=== PATIENT | female | born 1980 | race Caucasian/White ===

== ENCOUNTER 2022-08-22 01:13 | Emergency (ER) | payer OTHER ==
[~2022-08-22] VITALS: Ht 175.3 cm; Wt 113.4 kg
[2022-08-22] MEDS ORDERED: MELOXICAM15 MG PO (01:23)
[2022-08-22] MEDS ORDERED: GABAPENTIN800 MG PO (01:23)
[2022-08-22] MEDS ORDERED: PHENTERMINE H37.5 M1 PO (01:23)
[2022-08-22] MEDS ORDERED: CAPLYTA42 MG PO (01:24)
[2022-08-22] MEDS ORDERED: CYCLOBENZAPRINE10 MG PO (01:24)
[2022-08-22] MEDS ORDERED: CLONIDINE HCL0.3 MG PO (01:24)
[2022-08-22] MEDS ORDERED: BUPRENORPHINE-1 EACH SL (05:54)
== END 2022-08-22 03:08 | disposition home or self-care (01) ==
LOC: ED 01:13
DX: I83.891 Varicose veins of right lower extremity with other complications (principal); Z79.899 Other long term (current) drug therapy
CPT/HCPCS: 36415; 80053; 85025; 85610; 99283

== ENCOUNTER 2022-08-22 05:39 | Emergency (ER) | payer OTHER ==
[~2022-08-22] VITALS: Ht 175.3 cm; Wt 113.4 kg
[~2022-08-22 05:39] MED LIST: CAPLYTA42 MG PO; CLONIDINE HCL0.3 MG PO; CYCLOBENZAPRINE10 MG PO; GABAPENTIN800 MG PO; MELOXICAM15 MG PO; PHENTERMINE H37.5 M1 PO
--- OUTSIDE RECORDS SUMMARY | 2022-08-22 05:42 | XMS ---
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 Jose has no Care Guidelines for this patient. [facility] MO[facility]: Visits indicate total known visits. ED/C VISIT TRACKING (12 MO.) [facility] COMPLAINT: - BLEEDING EXTREMITY 08/22/2022 01:14 [facility] TYPE: Emergency COMPLAINT: - BLEEDING EXTREMITY INPATIENT VISIT TRACKING (12 MO.) No inpatient visits to display in this time frame [id number]
[2022-08-22] MEDS ORDERED: BUPRENORPHINE-1 EACH SL (05:54)
== END 2022-08-22 06:35 | disposition home or self-care (01) ==
LOC: ED 05:39
DX: I83.891 Varicose veins of right lower extremity with other complications (principal)
CPT/HCPCS: 12001; 99283-25

== ENCOUNTER 2023-03-30 17:30 | Emergency (ER) | payer OTHER ==
[~2023-03-30] VITALS: Ht 175.3 cm; Wt 113.4 kg
--- OUTSIDE RECORDS SUMMARY | ~2023-03-30 | XMS | Continuity of Care Document ---
Demographics + + + | Address | [address] | | | [place] [address] | + + + | Preferred Language | Unknown | + + + | Marital Status | | + + + | Worship Affiliation | Unknown | + + + | Race | White | + + + | Ethnic Group | Not or | + + + Author + + + | Author | [facility] | + + + | Organization | [facility] | + + + | Address | [address] | | | [place] [address] | + + + | Phone | | + + + Care Team Providers + + + + | Care [facility] Lifeguard Specialist Name | Role | Phone | + + + + Unavailable | Unavailable | + + + + Unavailable | Unavailable | + + + + Unavailable | Unavailable | + + + + Allergies No information. Encounters No information. Functional Status No information. Immunizations No information. Medications + + + + | date | description | facility | + + + + | 2022-08-22 00:00 | Buprenorphine HCl/Naloxone | [facility] | | | HCl | | + + + + | 2022-08-22 00:00 | MELOXICAM | [facility] | + + + + | 2022-08-22 00:00 | MELOXICAM | [facility] | + + + + | 2022-08-22 00:00 | Lumateperone Tosylate | [facility] | + + + + | 2022-08-22 00:00 | Lumateperone Tosylate | [facility] | + + + + | 2022-08-22 00:00 | GABAPENTIN | [facility] | + + + + | 2022-08-22 00:00 | GABAPENTIN | [facility] | + + + + | 2022-08-22 00:00 | PHENTERMINE HCL | [facility] | + + + + | 2022-08-22 00:00 | PHENTERMINE HCL | [facility] | + + + + | 2022-08-22 00:00 | CYCLOBENZAPRINE HCL | [facility] | + + + + | 2022-08-22 00:00 | CYCLOBENZAPRINE HCL | [facility] | + + + + | 2022-08-22 00:00 | CLONIDINE HCL | [facility] | + + + + | 2022-08-22 00:00 | CLONIDINE HCL | [facility] | + + + + Problems + + + + | date | description | facility | + + + + | 2022-08-22 00:00 | Hemorrhage of varicose | [facility] | | | veins of right lower | | | | extremity | | + + + + | 2022-08-22 00:00 | Hemorrhage of varicose | [facility] | | | veins of right lower | | | | extremity | | + + + + | 2022-08-22 00:00 | Hemorrhage of varicose | [facility] | | | veins of left lower | | | | extremity | | + + + + Procedures No information. Results/Labs +--------+--------+ +---------+--------+---------+ | test | date | facility | value | unit | notes | +--------+--------+ +---------+--------+---------+ + + | Result panel 1 | + + + + + +-------+ + + | | 2022-08-22 | [facility] | 7.7 | (missing) | (missing) | | (unavailable | 01:25:08 [facility] | | | + + + +-------+ + + + + | Result panel 2 | + + + + + +--------+ + + | | 2022-08-22 | [facility] | 59.9 | (missing) | (missing) | | (unavailable | 01::08 [facility] | | | | + + + +--------+ + + + + | Result panel 3 | + + + + + +--------+ + + | | 2022-08-22 | [facility] | 31.9 | (missing) | (missing) | | (unavailable | 01::08 [facility] | | | | + + + +--------+ + + + + | Result panel 4 | + + + + + +-------+ + + | | 2022-08-22 | [facility] | 6.3 | (missing) | (missing) | | (unavailable | :25:08 [facility] | | | | + + + +-------+ + + + + | Result panel 5 | + + + + + +-------+ + + | | 2022-08-22 | [facility] | 1.2 | (missing) | (missing) | | (unavailable | ::08 | [facility] | | | | + + + +-------+ + + + + | Result panel 6 | + + + + + +-------+ + + | | 2022-08-22 | [facility] | 0.7 | (missing) | (missing) | | (unavailable | 01:25:08 [facility] | | | + + + +-------+ + + + + | Result panel 7 | + + + + + +--------+ + + | | 2022-08-22 | [facility] | 13.3 | (missing) | (missing) | | (unavailable | ::08 | [facility] | | | + + + +--------+ + + + + | Result panel 8 | + + + + + +--------+ + + | | 2022-08-22 | [facility] | 1.06 | (missing) | (missing) | | (unavailable | ::08 | [facility] | | | + + + +--------+ + + + + | Result panel 9 | + + + + + +------+---------+ + | | 2022-08-22 | [facility] | 99 | mg/dL | (missing) | | (unavailable | ::08 | [facility] | | | | + + + +------+---------+ + + + | Result panel 10 | + + + + + +------+---------+ + | | 2022-08-22 | [facility] | 10 | mg/dL | (missing) | | (unavailable | ::08 | [facility] | | | | + + + +------+---------+ + + + | Result panel 11 | + + + + + +--------+---------+ + | | 2022-08-22 | [facility] | 0.77 | mg/dL | (missing) | | (unavailable | ::08 | [facility] | | | + + + +--------+---------+ + + + | Result panel 12 | + + + + + +--------+ + + | | 2022-08-22 | [facility] | 3.83 | (missing) | (missing) | | (unavailable | :25:08 [facility] | | | | + + + +--------+ + + + + | Result panel 13 | + + + + + +------+ + + | | 2022-08-22 | [facility] | 99 | (missing) | (missing) | | (unavailable | ::08 | [facility] | | | + + + +------+ + + + + | Result panel 14 | + + + + + +---------+ + + | | 2022-08-22 | [facility] | 12.98 | (missing) | (missing) | | (unavailable | 01:25:08 [facility] | | | | + + + +---------+ + + + + | Result panel 15 | + + + + + +-------+ + + | | 2022-08-22 | [facility] | 142 | (missing) | (missing) | | (unavailable | 01:25:08 [facility] | | | | + + + +-------+ + + + + | Result panel 16 | + + + + + +-------+ + + | | 2022-08-22 | [facility] | 3.9 | (missing) | (missing) | | (unavailable | 01:25:08 [facility] | | | + + + +-------+ + + + + | Result panel 17 | + + + + + +-------+ + + | | 2022-08-22 | [facility] | 104 | (missing) | (missing) | | (unavailable | 01:25:08 [facility] | | | + + + +-------+ + + + + | Result panel 18 | + + + + + +------+ + + | | 2022-08-22 | [facility] | 29 | (missing) | (missing) | | (unavailable | 01:25:08 [facility] | | | | + + + +------+ + + + + | Result panel 19 | + + + + + +--------+ + + | | 2022-08-22 | [facility] | 12.9 | (missing) | (missing) | | (unavailable | 01:25:08 [facility] | | | + + + +--------+ + + + + | Result panel 20 | + + + + + +-------+---------+ + | | 2022-08-22 | [facility] | 8.5 | mg/dL | (missing) | | (unavailable | :25:08 [facility] | | | + + + +-------+---------+ + + + | Result panel 21 | + + + + + +-------+ + + | | 2022-08-22 | [facility] | 7.0 | (missing) | (missing) | | (unavailable | :25:08 [facility] | | | | + + + +-------+ + + + + | Result panel 22 | + + + + + +-------+ + + | | 2022-08-22 | [facility] | 3.4 | (missing) | (missing) | | (unavailable | 01:25:08 [facility] | | | + + + +-------+ + + + + | Result panel 23 | + + + + + +--------+ + + | | 2022-08-22 | [facility] | 10.7 | (missing) | (missing) | | (unavailable | 01:25:08 [facility] | | | + + + +--------+ + + + + | Result panel 24 | + + + + + +-------+ + + | | 2022-08-22 | [facility] | 3.6 | (missing) | (missing) | | (unavailable | 01:25:08 [facility] | | | + + + +-------+ + + + + | Result panel 25 | + + + + + +--------+ + + | | 2022-08-22 | [facility] | 0.94 | (missing) | (missing) | | (unavailable | 01:25:08 [facility] | | | + + + +--------+ + + + + | Result panel 26 | + + + + + +-------+ + + | | 2022-08-22 | [facility] | 0.6 | (missing) | (missing) | | (unavailable | 01:25:08 [facility] | | | + + + +-------+ + + + + | Result panel 27 | + + + + + +------+ + + | | 2022-08-22 | [facility] | 21 | (missing) | (missing) | | (unavailable | 01:25:08 [facility] | | | + + + +------+ + + + + | Result panel 28 | + + + + + +------+ + + | | 2022-08-22 | [facility] | 26 | (missing) | (missing) | | (unavailable | ::08 | [facility] | | | + + + +------+ + + + + | Result panel 29 | + + + + + +------+ + + | | 2022-08-22 | [facility] | 65 | (missing) | (missing) | | (unavailable | ::08 | [facility] | | | + + + +------+ + + + + | Result panel 30 | + + + + + +-------+ + + | | 2022-08-22 | [facility] | 7.7 | (missing) | (missing) | | (unavailable | ::08 | [facility] | | | + + + +-------+ + + + + | Result panel 31 | + + + + + +--------+ + + | | 2022-08-22 | [facility] | 3.83 | (missing) | (missing) | | (unavailable | :25:08 [facility] | | | + + + +--------+ + + + + | Result panel 32 | + + + + + +--------+ + + | | 2022-08-22 | [facility] | 10.7 | (missing) | (missing) | | (unavailable | :08 | [facility] | | | + + + +--------+ + + + + | Result panel 33 | + + + + + +--------+ + + | | 2022-08-22 | [facility] | 31.7 | (missing) | (missing) | | (unavailable | :08 | [facility] | | | + + + +--------+ + + + + | Result panel 34 | + + + + + +--------+ + + | | 2022-08-22 | [facility] | 31.7 | (missing) | (missing) | | (unavailable | :25:08 [facility] | | | + + + +--------+ + + + + | Result panel 35 | + + + + + +--------+ + + | | 2022-08-22 | [facility] | 82.6 | (missing) | (missing) | | (unavailable | :25:08 [facility] | | | + + + +--------+ + + + + | Result panel 36 | + + + + + +--------+ + + | | 2022-08-22 | [facility] | 28.0 | (missing) | (missing) | | (unavailable | :25:08 [facility] | | | + + + +--------+ + + + + | Result panel 37 | + + + + + +--------+ + + | | 2022-08-22 | [facility] | 33.9 | (missing) | (missing) | | (unavailable | 01:25:08 [facility] | | | + + + +--------+ + + + + | Result panel 38 | + + + + + +--------+ + + | | 2022-08-22 | [facility] | 13.8 | (missing) | (missing) | | (unavailable | 01:25:08 [facility] | | | + + + +--------+ + + + + | Result panel 39 | + + + + + +-------+ + + | | 2022-08-22 | [facility] | 226 | (missing) | (missing) | | (unavailable | 01:25:08 [facility] | | | + + + +-------+ + + + + | Result panel 40 | + + + + + +--------+ + + | | 2022-08-22 | [facility] | 59.9 | (missing) | (missing) | | (unavailable | 01:25:08 [facility] | | | + + + +--------+ + + + + | Result panel 41 | + + + + + +--------+ + + | | 2022-08-22 | [facility] | 31.9 | (missing) | (missing) | | (unavailable | 01:25:08 [facility] | | | + + + +--------+ + + + + | Result panel 42 | + + + + + +-------+ + + | | 2022-08-22 | [facility] | 6.3 | (missing) | (missing) | | (unavailable | ::08 | [facility] | | | + + + +-------+ + + + + | Result panel 43 | + + + + + +-------+ + + | | 2022-08-22 | [facility] | 1.2 | (missing) | (missing) | | (unavailable | 01:25:08 [facility] | | | + + + +-------+ + + + + | Result panel 44 | + + + + + +-------+ + + | | 2022-08-22 | [facility] | 0.7 | (missing) | (missing) | | (unavailable | 01:25:08 [facility] | | | + + + +-------+ + + + + | Result panel 45 | + + + + + +--------+ + + | | 2022-08-22 | [facility] | 82.6 | (missing) | (missing) | | (unavailable | 01:25:08 [facility] | | | + + + +--------+ + + + + | Result panel 46 | + + + + + +--------+ + + | | 2022-08-22 | [facility] | 13.3 | (missing) | (missing) | | (unavailable | 01:25:08 [facility] | | | + + + +--------+ + + + + | Result panel 47 | + + + + + +--------+ + + | | 2022-08-22 | [facility] | 1.06 | (missing) | (missing) | | (unavailable | :25:08 [facility] | | | + + + +--------+ + + + + | Result panel 48 | + + + + + +------+---------+ + | | 2022-08-22 | [facility] | 99 | mg/dL | (missing) | | (unavailable | 01:25:08 [facility] | | | + + + +------+---------+ + + + | Result panel 49 | + + + + + +------+---------+ + | | 2022-08-22 | [facility] | 10 | mg/dL | (missing) | | (unavailable | 01:25:08 | [facility] | | | + + + +------+---------+ + + + | Result panel 50 | + + + + + +--------+---------+ + | | 2022-08-22 | [facility] | 0.77 | mg/dL | (missing) | | (unavailable | 01:25:08 [facility] | | | + + + +--------+---------+ + + + | Result panel 51 | + + + + + +------+ + + | | 2022-08-22 | [facility] | 99 | (missing) | (missing) | | (unavailable | 01:25:08 [facility] | | | + + + +------+ + + + + | Result panel 52 | + + + + + +---------+ + + | | 2022-08-22 | [facility] | 12.98 | (missing) | (missing) | | (unavailable | 01:25:08 [facility] | | | | + + + +---------+ + + + + | Result panel 53 | + + + + + +-------+ + + | | 2022-08-22 | [facility] | 142 | (missing) | (missing) | | (unavailable | 01:25:08 [facility] | | | + + + +-------+ + + + + | Result panel 54 | + + + + + +-------+ + + | | 2022-08-22 | [facility] | 3.9 | (missing) | (missing) | | (unavailable | 01:25:08 [facility] | | | + + + +-------+ + + + + | Result panel 55 | + + + + + +-------+ + + | | 2022-08-22 | [facility] | 104 | (missing) | (missing) | | (unavailable | 01:25:08 | [facility] | | | + + + +-------+ + + + + | Result panel 56 | + + + + + +--------+ + + | | 2022-08-22 | [facility] | 28.0 | (missing) | (missing) | | (unavailable | ::08 | [facility] | | | + + + +--------+ + + + + | Result panel 57 | + + + + + +------+ + + | | 2022-08-22 | [facility] | 29 | (missing) | (missing) | | (unavailable | ::08 | [facility] | | | + + + +------+ + + + + | Result panel 58 | + + + + + +--------+ + + | | 2022-08-22 | [facility] | 12.9 | (missing) | (missing) | | (unavailable | 01:25:08 [facility] | | | + + + +--------+ + + + + | Result panel 59 | + + + + + +-------+---------+ + | | 2022-08-22 | [facility] | 8.5 | mg/dL | (missing) | | (unavailable | 08 | [facility] | | | | + + + +-------+---------+ + + + | Result panel 60 | + + + + + +-------+ + + | | 2022-08-22 | [facility] | 7.0 | (missing) | (missing) | | (unavailable | :08 | [facility] | | | + + + +-------+ + + + + | Result panel 61 | + + + + + +-------+ + + | | 2022-08-22 | [facility] | 3.4 | (missing) | (missing) | | (unavailable | ::08 | [facility] | | | + + + +-------+ + + + + | Result panel 62 | + + + + + +-------+ + + | | 2022-08-22 | [facility] | 3.6 | (missing) | (missing) | | (unavailable | :08 | [facility] | | | + + + +-------+ + + + + | Result panel 63 | + + + + + +--------+ + + | | 2022-08-22 | [facility] | 0.94 | (missing) | (missing) | | (unavailable | :25:08 [facility] | | | + + + +--------+ + + + + | Result panel 64 | + + + + + +-------+ + + | | 2022-08-22 | [facility] | 0.6 | (missing) | (missing) | | (unavailable | :25:08 [facility] | | | + + + +-------+ + + + + | Result panel 65 | + + + + + +------+ + + | | 2022-08-22 | [facility] | 21 | (missing) | (missing) | | (unavailable | 01:25:08 | [facility] | | | | + + + +------+ + + + + | Result panel 66 | + + + + + +------+ + + | | 2022-08-22 | [facility] | 26 | (missing) | (missing) | | (unavailable | 01:25:08 [facility] | | | | + + + +------+ + + + + | Result panel 67 | + + + + + +--------+ + + | | 2022-08-22 | [facility] | 33.9 | (missing) | (missing) | | (unavailable | 01:25:08 [facility] | | | + + + +--------+ + + + + | Result panel 68 | + + + + + +------+ + + | | 2022-08-22 | [facility] | 65 | (missing) | (missing) | | (unavailable | 01:25:08 | [facility] | | | | + + + +------+ + + + + | Result panel 69 | + + + + + +--------+ + + | | 2022-08-22 | [facility] | 13.8 | (missing) | (missing) | | (unavailable | :25:08 [facility] | | | | + + + +--------+ + + + + | Result panel 70 | + + + + + +-------+ + + | | 2022-08-22 | [facility] | 226 | (missing) | (missing) | | (unavailable | 01:25:08 | [facility] | | | | + + + +-------+ + + Social History + + + + | date | description | facility | + + + + | 2022-08-22 00:00 | Unknown if ever smoked | [facility] | + + + + | 2022-08-22 00:00 | Unknown if ever smoked | [facility] | + + + + Vital Signs + + + +---------+ | date | measurement | value | units | + + + +---------+ | 2022-08-22 00:00 | BMI | 36.9 | kg/m2 | + + + +---------+ | 2022-08-22 00:00 | BP_diastolic | 66 | mmHg | + + + +---------+ | 2022-08-22 00:00 | BP_diastolic | 84 | mmHg | + + + +---------+ | 2022-08-22 00:00 | BP_systolic | 106 | mmHg | + + + +---------+ | 2022-08-22 00:00 | BP_systolic | 119 | mmHg | + + + +---------+ | 2022-08-22 00:00 | heart_rate | 100 | /min | + + + +---------+ | 2022-08-22 00:00 | heart_rate | 102 | /min | + + + +---------+ | 2022-08-22 00:00 | height_metric | 175.26 | cm | + + + +---------+ | 2022-08-22 00:00 | height_standard | 69 | in | + + + +---------+ | 2022-08-22 00:00 | o2_saturation | 98 | % | + + + +---------+ | 2022-08-22 00:00 | respiration_rate | 16 | /min | + + + +---------+ | 2022-08-22 00:00 | respiration_rate | 20 | /min | + + + +---------+ | 2022-08-22 00:00 | temperature_metric | 36.78 | C | | | | | | + + + +---------+ | 2022-08-22 00:00 | temperature_metric | 36.89 | C | | | | | | + + + +---------+ | 2022-08-22 00:00 | | 98.2 | F | | | temperature_standar | | | | | d | | | + + + +---------+ | 2022-08-22 00:00 | | 98.4 | F | | | temperature_standar | | | | | d | | | + + + +---------+ | 2022-08-22 00:00 | weight_metric | 113.4 | kg | + + + +---------+ | 2022-08-22 00:00 | weight_standard | 250 | lb | + + + +---------+"
--- OUTSIDE RECORDS SUMMARY | ~2023-03-30 | XMS | Continuity of Care Document ---
Demographics + + + | Address | [address] | | | [place] [address] | + + + | Preferred Language | Unknown | + + + | Marital Status | | + + + | Judaism Affiliation | Unknown | + + + | Race | White | + + + | Ethnic Group | Not or | + + + Author + + + | Author | [facility] | + + + | Organization | [facility] | + + + | Address | [address] | | | [place] [address] | + + + | Phone | | + + + Care Team Providers + + + + | Care Striper Machine Name | Role | Phone | + [...] | 2022-08-22 00:00 | Buprenorphine HCl/Naloxone | [facility] | | | HCl | | + + + + | 2022-08-22 00:00 | MELOXICAM | [facility] | + + + + | 2022-08-22 00:00 | MELOXICAM | [facility] | + + + + | 2022-08-22 00:00 | Lumateperone Tosylate | [facility] | + + + + | 2022-08-22 00:00 | Lumateperone Tosylate | [facility] | + + + + | 2022-08-22 00:00 | GABAPENTIN | [facility] | + + + + | 2022-08-22 00:00 | GABAPENTIN | [facility] | + + + + | 2022-08-22 00:00 | PHENTERMINE HCL | [facility] | + + + + | 2022-08-22 00:00 | PHENTERMINE HCL | [facility] | + + + + | 2022-08-22 00:00 | CYCLOBENZAPRINE HCL | [facility] | + + + + | 2022-08-22 00:00 | CYCLOBENZAPRINE HCL | [facility] | + + + + | 2022-08-22 00:00 | CLONIDINE HCL | [facility] | + + + + | 2022-08-22 00:00 | CLONIDINE HCL | [facility] | + + + + Problems + + + + | date | description | facility | + + + + | 2022-08-22 00:00 | Hemorrhage of varicose | [facility] | | | veins of right lower | | | | extremity | | + + + + | 2022-08-22 00:00 | Hemorrhage of varicose | [facility] | | | veins of right lower | | | | extremity | | + + + + | 2022-08-22 00:00 | Hemorrhage of varicose | [facility] | | | veins of left lower [...] 00:00 | Unknown if ever smoked | [facility] | + + + + | 2022-08-22 00:00 | Unknown if ever smoked | [facility] | + + + + Vital Signs [...]
[~2023-03-30 17:30] MED LIST changes: +BUPRENORPHINE-1 EACH SL
--- OUTSIDE RECORDS SUMMARY | 2023-03-30 17:33 | XMS ---
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 Jose has no Care Guidelines for this patient. Jaiden VISIT COUNT (12 MO.) 3 [facility] TOTAL 3 NOTE: Visits indicate total known visits. ED/UCC VISIT TRACKING (12 MO.) 03/30/2023 17:30 [facility] TYPE: Emergency COMPLAINT: - RT LEG PAIN 08/22/2022 05:40 [facility] TYPE: Emergency COMPLAINT: - BLEEDING EXTREMITY DIAGNOSES: - Varicose veins of right lower extremity with other complications 08/22/2022 01:14 [facility] TYPE: Emergency COMPLAINT: - BLEEDING EXTREMITY DIAGNOSES: - Other [facility] (current) drug therapy - Varicose veins of right lower extremity with other complications INPATIENT VISIT TRACKING (12 MO.) No inpatient visits to display in this time frame [id number]
[2023-03-30 19:05] VITALS: BP 90/58
== END 2023-03-30 19:07 | disposition home or self-care (01) ==
LOC: ED 17:30
DX: I83.891 Varicose veins of right lower extremity with other complications (principal); Z79.899 Other long term (current) drug therapy
CPT/HCPCS: 90715